=== PATIENT | male | born 1985 | race Asian ===

== ENCOUNTER 2016-12-10 09:44 | Emergency (ER) | payer BC ==
[~2016-12-10] VITALS: Ht 172.7 cm; Wt 74.8 kg
[2016-12-10 09:56] VITALS: BP_SYST 122
[2016-12-10 10:36] LABS: BASOPHILS # (AUTO) 0.1 K/uL (0.0-0.2); BASOPHILS % (AUTO) 1.3 % (0.0-2.0); EOSINOPHILS # (AUTO) 0.2 K/uL (0.0-0.4); EOSINOPHILS % (AUTO) 2.1 % (0.0-4.0); HEMATOCRIT 47.8 % (36-54); HEMOGLOBIN 16.3 g/dL (14.0-18.0); LYMPHOCYTES # (AUTO) 2.7 K/uL (1.0-5.5); LYMPHOCYTES % (AUTO) 36.9 % (20.5-51.5); MEAN CORPUSCULAR HEMOGLOBIN 30 pg (27-31); MEAN CORPUSCULAR HGB CONC 34 % (32-36); MEAN CORPUSCULAR VOLUME 87 fL (79.0-98.0); MONOCYTES # (AUTO) 0.5 K/uL (0.0-1.0); MONOCYTES % (AUTO) 6.8 % (1.7-9.3); NEUTROPHILS # (AUTO) 3.9 K/uL (1.8-7.7); NEUTROPHILS % (AUTO) 52.9 % (40.0-70.0); PLATELET COUNT (AUTO) 242 K/uL (130-430); RED BLOOD CELL COUNT(AUTO) 5.51 MIL/uL (4.2-6.2); RED CELL DISTRIBUTION WIDTH 12.3 % (9.0-15.0); WHITE BLOOD COUNT (AUTO) 7.4 K/uL (4.8-10.8)
[2016-12-10 10:43] LABS: CALCIUM 9.1 mg/dL (8.4-11.0); CREATININE 0.98 mg/dL (0.55-1.30); POTASSIUM 3.6 mmol/L (3.5-5.1)
[2016-12-10 10:47] LABS: ALBUMIN 3.8 g/dL (3.4-4.8); TOTAL BILIRUBIN 0.4 mg/dL (0.0-1.0); TOTAL PROTEIN, SERUM 7.2 g/dL (6.4-8.3)
[2016-12-10 10:55] LABS: BILIRUBIN,URINE NEGATIVE (NEGATIVE); BLOOD, URINE NEGATIVE (NEGATIVE); CLARITY/URINE CLEAR (CLEAR); COLOR,URINE YELLOW (YELLOW); GLUCOSE,URINE NEGATIVE (NEGATIVE); KETONES,URINE NEGATIVE (NEGATIVE); LEUKOCYTE ESTERASE ,URINE NEGATIVE (NEGATIVE); NITRITE, URINE NEGATIVE (NEGATIVE); PH,URINE 6.5 (5.0-8.0); PROTEIN URINE NEGATIVE (NEGATIVE); UROBILINOGEN,URINE 0.2 (0.2-1.0)
[2016-12-10 11:56] VITALS: BP_SYST 125
== END 2016-12-10 11:58 | disposition home or self-care (01) ==
LOC: SED 09:44
DX: R10.9 Unspecified abdominal pain (principal)
CPT/HCPCS: 36415; 80053; 81003; 83690-TC; 85025; 99285

== ENCOUNTER 2017-06-30 12:31 | Emergency (ER) | payer BC ==
[~2017-06-30] VITALS: Ht 167.6 cm; Wt 63.5 kg
[2017-06-30 12:51] VITALS: BP_SYST 149
--- NOTE | 2017-06-30 12:56 | NUR ---
Ambulatory to hallway bed 1
--- NOTE | 2017-06-30 13:15 | NUR ---
BEATRIS Yost at bedside for evaluation
[2017-06-30 13:35] VITALS: BP_SYST 136
--- NOTE | 2017-06-30 13:35 | NUR ---
Patient given written and verbal discharge instructions and verbalizes understanding. 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 Patient in stable condition. ID arm band removed. Rx of kenalog 0.5% cream, prednisone given. Patient educated on pain management and to follow up with PMD. Pain Scale 2/10. Opportunity for questions provided and answered.
== END 2017-06-30 13:35 | disposition home or self-care (01) ==
LOC: SED 12:31
DX: L30.9 Dermatitis, unspecified (principal); R03.0 Elevated blood-pressure reading, without diagnosis of hypertension
CPT/HCPCS: 99283

== ENCOUNTER 2018-02-05 14:07 | Emergency (ER) | payer BC ==
[~2018-02-05] VITALS: Ht 172.7 cm; Wt 81.6 kg
[2018-02-05 14:14] VITALS: BP_SYST 149
[2018-02-05] MEDS ORDERED: KETOROLAC TROMETHAMINE 60 MG/2 ML VIAL IM ONE (14:30)
[2018-02-05 15:16] VITALS: BP_SYST 138
== END 2018-02-05 15:16 | disposition home or self-care (01) ==
LOC: SED 14:07
DX: R51 Headache (principal); R03.0 Elevated blood-pressure reading, without diagnosis of hypertension
CPT/HCPCS: 70450; 96372; 99284; J1885

== ENCOUNTER 2022-02-15 01:11 | Emergency (ER) | payer SELFPAY ==
[~2022-02-15] VITALS: Ht 172.7 cm; Wt 80.7 kg
[2022-02-15 01:23] VITALS: BP_SYST 121
[2022-02-15] MEDS ORDERED: ACETAMINOPHEN 500 MG TABLET PO ONE (01:30)
--- NOTE | 2022-02-15 03:06 | NUR ---
PATIENT ANGEL. AWARE
== END 2022-02-15 03:06 | disposition left against medical advice (07) ==
LOC: SED 01:11
DX: S60.922A Unspecified superficial injury of left hand, initial encounter (principal); S60.921A Unspecified superficial injury of right hand, initial encounter; Y04.8XXA Assault by other bodily force, initial encounter; Y93.89 Activity, other specified; Y92.89 Other specified places as the place of occurrence of the external cause; Y99.8 Other external cause status
CPT/HCPCS: 72050-TC; 99284